=== PATIENT | female | born 1975 | race Two or more races ===

== ENCOUNTER → 2024-04-06 | Outpatient (CLI) | payer OTHER, SELFPAY ==
[2024-04-06 11:21] LABS: Basophils # (Auto) 0.1 Thou/mm3 (0.0-0.2); Basophils % (Auto) 2 % (0-2.5); Eosinophils # (Auto) 0.1 Thou/mm3 (0.0-0.5); Eosinophils % (Auto) 3 % (0-10); Hematocrit 31.3 % (36.0-46.0); Hemoglobin 10.1 g/dL (12.0-16.0); Immature Granulocytes % (Auto) 0 % (0-0); Immature Granulocytes Auto 0.01 Thou/mm3 (0.00-0.00); Lymphocytes # (Auto) 1.3 Thou/mm3 (1.0-4.8); Lymphocytes % (Auto) 37 % (10-50); Mean Corpuscular HGB Conc 32.3 g/dl (31.0-37.0); Mean Corpuscular Hemoglobin 33.1 pg (25.0-35.0); Mean Corpuscular Volume 103 fL (80-100); Monocytes # (Auto) 0.4 Thou/mm3 (0.0-0.8); Monocytes % (Auto) 11 % (0-12); Neutrophils # (Auto) 1.7 Thou/mm3 (1.8-7.7); Neutrophils % (Auto) 47 % (37-80); Nucleated Red Blood Cell % 0 /100 WBC (0); Platelet Count 325 Thou/mm3 (140-440); Red Blood Count 3.05 Miln/mm3 (4.00-5.20); White Blood Count 3.6 Thou/mm3 (3.6-11.0)
[2024-04-06 11:40] LABS: Alanine Aminotransferase 16 U/L (10-49); Albumin, Serum 4.5 gm/dL (3.5-5.0); Albumin/Globulin Ratio 1.9 (1.2-2.2); Alkaline Phosphatase 73 U/L (46-116); Anion Gap 9 (7-16); Aspartate Amino Transferase 23 U/L (0-34); BUN/Creatinine Ratio 17 Ratio (12-20); Bilirubin,Total 0.5 mg/dL (0.3-1.2); Blood Urea Nitrogen 10 mg/dL (9-23); Calcium 9.4 mg/dL (8.3-10.6); Calcium (Corrected) 9.4 mg/dL (8.5-10.1); Carbon Dioxide 25.3 mMol/L (20.0-31.0); Chloride 104 mMol/L (98-107); Cholesterol 221 mg/dL (132-200); Creatinine (Component) 0.6 mg/dL (0.6-1.3); Globulin 2.4 gm/dL (2.3-3.5); Glucose 85 mg/dL (74-106); HDL Cholesterol 111 mg/dL (40-60); LDL Cholesterol,Calculated 94 mg/dL (0-130); Osmolality,Calculated 273 (275-295); Potassium 4.4 mMol/L (3.4-5.1); Sodium 138 mMol/L (136-145); Thyroid Stimulating Hormone 1.47 uIU/mL (0.55-4.78); Total Protein 6.9 gm/dL (5.7-8.2); Triglycerides 79 mg/dL (30-150); Uric Acid 4.6 mg/dL (3.1-7.8); eGFR > 60 See Note
[2024-04-06 11:44] LABS: Collection Type, Urine Clean Catch
[2024-04-06 11:49] LABS: Ferritin 7 ng/mL (7.3-270.7)
[2024-04-06 11:52] LABS: Vitamin B12 418 pg/mL (211-911); Vitamin D 25 Hydroxy Total 12.1 ng/mL (7.3-40.2)
[2024-04-06 12:12] LABS: Bacteria,Urine Rare; Bilirubin,Urine Negative (Negative); Blood,Urine Negative (Negative); Clarity,Urine Clear (Clear/Hazy); Color,Urine Colorless (Lt Yel-Yel); Glucose, Urine Negative (Negative); Ketones,Urine Negative (Negative); Leukocyte Esterase,Urine Negative (Negative); Nitrite,Urine Negative (Negative); Protein,Urine Negative (Neg - Trace); RBC,Urine 2 /hpf (0-3); Specific Gravity,Urine 1.008 (1.001-1.035); Squamous Epithelial Cell,Urine 8 /hpf (0-5); Urobilinogen,Urine Negative mg/dL (0.0-1.0); WBC,Urine 1 /hpf (0-5)
[2024-04-09 13:59] LABS: Misc Send Out* See Sep Rpt
== END | disposition home or self-care (01) ==
PROVIDERS: PCP Internal Medicine; Referring Provider Internal Medicine; Visit Provider Internal Medicine
DX: Z00.00 Encounter for general adult medical examination without abnormal findings (principal)
CPT/HCPCS: 36415; 80053; 80061; 81001; 82306; 82607; 82728; 83036; 84443; 84550; 85025

== ENCOUNTER → 2024-05-30 | Outpatient (CLI) | payer OTHER, SELFPAY ==
[2024-05-30 10:53] LABS: Follicle Stimulating Hormone 10.99 mIU/mL (See Note)
[2024-05-30 10:54] LABS: Alanine Aminotransferase 20 U/L (10-49); Albumin, Serum 4.5 gm/dL (3.5-5.0); Albumin/Globulin Ratio 1.6 (1.2-2.2); Alkaline Phosphatase 69 U/L (46-116); Anion Gap 5 (7-16); Aspartate Amino Transferase 42 U/L (0-34); BUN/Creatinine Ratio 12 Ratio (12-20); Beta HCG,Quantitative < 1 mIU/mL (<5.0); Bilirubin,Total 0.4 mg/dL (0.3-1.2); Blood Urea Nitrogen 7 mg/dL (9-23); Calcium 9.1 mg/dL (8.3-10.6); Calcium (Corrected) 9.1 mg/dL (8.5-10.1); Carbon Dioxide 24.6 mMol/L (20.0-31.0); Chloride 104 mMol/L (98-107); Creatinine (Component) 0.6 mg/dL (0.6-1.3); Free T4 (Free Thyroxine) 0.98 ng/dL (0.89-1.76); Globulin 2.8 gm/dL (2.3-3.5); Glucose 89 mg/dL (74-106); Osmolality,Calculated 265 (275-295); Potassium 4.4 mMol/L (3.4-5.1); Sodium 134 mMol/L (136-145); Thyroid Stimulating Hormone 1.55 uIU/mL (0.55-4.78); Total Protein 7.3 gm/dL (5.7-8.2); eGFR > 60 See Note
[2024-05-30 11:05] LABS: Glucose Estimated Average 88 mg/dL (80-131); Hemoglobin A1C 4.7 % Hgb (4.8-6.0)
[2024-05-30 11:16] LABS: Basophils # (Auto) 0.1 Thou/mm3 (0.0-0.2); Basophils % (Auto) 1 % (0-2.5); Eosinophils # (Auto) 0.1 Thou/mm3 (0.0-0.5); Eosinophils % (Auto) 3 % (0-10); Hematocrit 33.5 % (36.0-46.0); Hemoglobin 10.5 g/dL (12.0-16.0); Immature Granulocytes % (Auto) 0 % (0-0); Immature Granulocytes Auto 0.01 Thou/mm3 (0.00-0.00); Lymphocytes # (Auto) 1.4 Thou/mm3 (1.0-4.8); Lymphocytes % (Auto) 35 % (10-50); Mean Corpuscular HGB Conc 31.3 g/dl (31.0-37.0); Mean Corpuscular Hemoglobin 31.2 pg (25.0-35.0); Mean Corpuscular Volume 99 fL (80-100); Monocytes # (Auto) 0.5 Thou/mm3 (0.0-0.8); Monocytes % (Auto) 12 % (0-12); Neutrophils # (Auto) 1.9 Thou/mm3 (1.8-7.7); Neutrophils % (Auto) 49 % (37-80); Nucleated Red Blood Cell % 0 /100 WBC (0); Platelet Count 425 Thou/mm3 (140-440); RDW Standard Deviation 54.4 fL (36.4-46.3); Red Blood Count 3.37 Miln/mm3 (4.00-5.20)
[2024-06-11 07:01] LABS: DHEA Sulfate* 75 mcg/dL (19-231); Estrogen, Total, Serum* 156 pg/mL
[2024-06-11 07:02] LABS: Albumin 4.4 g/dL (3.6-5.1); Luteinizing Hormone* 10.2 mIU/mL; Progesterone,LC/MS* <0.1 ng/mL; Prolactin* 6.1 ng/mL; SHBG 111 nmol/L (17-124); Testosterone, Bioavailable 1.4 ng/dL (0.5-8.5); Testosterone, Free 0.7 pg/mL (0.2-5.0); Testosterone,Total 17 ng/dL (2-45)
== END | disposition home or self-care (01) ==
LOC: SLAB 09:11
PROVIDERS: PCP Internal Medicine; Referring Provider Specialist; Visit Provider Specialist
DX: N93.9 Abnormal uterine and vaginal bleeding, unspecified (principal)
CPT/HCPCS: 36415; 80053; 82040; 82627; 82672; 83001; 83002; 83036; 84144; 84146; 84270; 84403; 84439; 84443; 84702; 85025

== ENCOUNTER → 2024-06-28 | Outpatient (CLI) | payer OTHER, SELFPAY ==
[2024-06-28 17:23] LABS: BVAG Candida Negative (Negative); Bacterial Vaginosis Markers Positive (Negative); Candida glabrata Negative (Negative); Candida krusei PCR Negative (Negative); Trichomonas Negative (Negative)
== END | disposition home or self-care (01) ==
LOC: SLDO 13:42
PROVIDERS: Referring Provider Specialist; Visit Provider Specialist
DX: B37.89 Other sites of candidiasis (principal); N76.0 Acute vaginitis; A59.01 Trichomonal vulvovaginitis
CPT/HCPCS: 81514

== ENCOUNTER 2024-08-14 08:50 | Day surgery (SDC) | payer OTHER, SELFPAY ==
--- NOTE | 2024-08-10 08:19 | ESHP_ITS ---
RE: LAURENT TRAN : 1975 DATE OF ADMISSION: 08/14/2024 HISTORY OF PRESENT ILLNESS: This is a 48-year-old 2, para 2 with abnormal uterine bleeding, cervical polyp who presents for removal of polyp and endometrial ablation. ALLERGIES: NO KNOWN DRUG ALLERGIES. MEDICATIONS: Citalopram 10 mg one p.o. daily. SOCIAL HISTORY: She is . She denies any alcohol, drug use, or smoking. PAST MEDICAL HISTORY: Depression. FAMILY HISTORY: Denies. PAST SURGICAL HISTORY: delivery in 1997. REVIEW OF SYSTEMS: She denies any chest pain, palpitations, cough, fever, shortness of breath, or lower extremity pain. PHYSICAL EXAMINATION: VITAL SIGNS: Blood pressure 132/74, heart rate 88, respirations 18, and temperature 98.6. HEENT: Oropharynx and sclerae are clear. LUNGS: Clear to auscultation bilaterally. HEART: Regular rate and rhythm. ABDOMEN: Old Pfannenstiel scar noted. EXTREMITIES: Nontender. SKIN: No gross rashes or lesions. NEUROLOGIC: No focal deficits. ASSESSMENT: 1. Abnormal uterine bleeding. 2. Cervical polyp. 3. Endocervical polyp. PLAN: Hysteroscopy, MyoSure removal of endometrial and endocervical polyps, fractional dilatation and curettage, and NovaSure endometrial ablation. Informed consent was obtained. The patient was made aware of the risks, complications, alternatives, and benefits of the proposed procedure and she agrees. She is aware of the risk of injury to bowel or bladder, uterus, adjacent organs, pulmonary embolism, deep vein thrombosis, pelvic infection, reoperation to repair injury to internal organs, anesthesia complications, the possibility that a laparotomy needs to be performed to repair organs or control bleeding and the possibility that the procedure is not able to be completed due to severe adhesions or technical difficulties. She verbalized understanding and agrees to proceed with the procedure with an understanding of the risks and complications. DT: 07:48:48 TT: 08:17:00 Ref: [id number] - TID: [id number]
[2024-08-10 09:35] VITALS: BMI 34.9
[2024-08-10 11:29] LABS: Basophils # (Auto) 0.1 Thou/mm3 (0.0-0.2); Basophils % (Auto) 1 % (0-2.5); Eosinophils # (Auto) 0.2 Thou/mm3 (0.0-0.5); Eosinophils % (Auto) 4 % (0-10); Hematocrit 35.1 % (36.0-46.0); Hemoglobin 11.4 g/dL (12.0-16.0); Immature Granulocytes % (Auto) 0 % (0-0); Immature Granulocytes Auto 0.01 Thou/mm3 (0.00-0.00); Lymphocytes # (Auto) 1.5 Thou/mm3 (1.0-4.8); Lymphocytes % (Auto) 32 % (10-50); Mean Corpuscular HGB Conc 32.5 g/dl (31.0-37.0); Mean Corpuscular Hemoglobin 31.8 pg (25.0-35.0); Mean Corpuscular Volume 98 fL (80-100); Monocytes # (Auto) 0.5 Thou/mm3 (0.0-0.8); Monocytes % (Auto) 10 % (0-12); Neutrophils # (Auto) 2.4 Thou/mm3 (1.8-7.7); Neutrophils % (Auto) 53 % (37-80); Nucleated Red Blood Cell % 0 /100 WBC (0); Platelet Count 280 Thou/mm3 (140-440); RDW Standard Deviation 50.4 fL (36.4-46.3); Red Blood Count 3.59 Miln/mm3 (4.00-5.20); White Blood Count 4.6 Thou/mm3 (3.6-11.0)
[2024-08-10 11:44] LABS: Alanine Aminotransferase 23 U/L (10-49); Albumin, Serum 4.4 gm/dL (3.5-5.0); Albumin/Globulin Ratio 1.6 (1.2-2.2); Alkaline Phosphatase 91 U/L (46-116); Anion Gap 9 (7-16); Aspartate Amino Transferase 34 U/L (0-34); BUN/Creatinine Ratio 14 Ratio (12-20); Beta HCG,Quantitative 1 mIU/mL (<5.0); Bilirubin,Total 0.6 mg/dL (0.3-1.2); Blood Urea Nitrogen 11 mg/dL (9-23); Calcium 8.9 mg/dL (8.3-10.6); Calcium (Corrected) 8.9 mg/dL (8.5-10.1); Carbon Dioxide 24.9 mMol/L (20.0-31.0); Chloride 107 mMol/L (98-107); Creatinine (Component) 0.8 mg/dL (0.6-1.3); Estimated Creatinine Clearance 95.6 mL/min (>60); Globulin 2.8 gm/dL (2.3-3.5); Glucose 93 mg/dL (74-106); Osmolality,Calculated 280 (275-295); Potassium 4.6 mMol/L (3.4-5.1); Sodium 141 mMol/L (136-145); Total Protein 7.2 gm/dL (5.7-8.2); eGFR > 60 See Note
[2024-08-10 15:02] LABS: INR 0.9 (0.9-1.3); Partial Thromboplastin Time 27.6 Seconds (22.0-36.0); Prothrombin Time 10.3 Seconds (9.0-12.2)
[2024-08-14] VITALS (10 sets, daily range): BP systolic 102–135; BP diastolic 60–88; PULSE 62–75; RESP 14–20; TEMP 36.3–36.6; O2SAT 97–100; BMI 33.7
--- NOTE | 2024-08-14 12:14 | XR_ITS ---
Examination: AP chest single view Technique one AP portable upright chest single view Date and time: August 14, 2024 1238 hours Comparison April 07, 2023 INDICATIONS: Chest pain today. FINDINGS: No significant cardiac enlargement Mild opacity perihilar and both bases suspicious for early pneumonia Moderate osteopenia IMPRESSION: Suspicious for early bilateral pneumonia
[2024-08-14] MEDS: ALBUTEROL/IPRATROPIUM (Duoneb) RT SOL 3 ML NEBU INH (12:15)
--- NOTE | 2024-08-14 12:16 | SUR.PHASEI ---
Pt. arrived to recovery via gurney, eyes open, responds to verbal commands, VSS, lung sounds clear, diminished at bases, pt. receiving 10 liters 02, Abdiel PROJECT SAFETY MANAGER ordered albuterol breathing treatment d/t difficult intubation, fish-pad in place, saturated in bright red blood and medium size clot noted, changed fish-pad and will continue to monitor bleeding, vaginal packing in place, no c/o pain or nausea at this time. CXR ordered to r/o aspiration. Report received from Erika OLIVA and Grace lindsay CRNA.
--- NOTE | 2024-08-14 13:02 | SUR.PHASEII ---
Gave report on pt. s/p surgery to Grazyna OLIVA.
[2024-08-14] MEDS: fentaNYL CIT INJ 50 mCg/ML AMP 2ML IVP (13:04)
--- NOTE | 2024-08-14 13:45 | SUR.PHASEII ---
1345: Pt. AAOx4, vitals stable, breathing unlabored, no complaint of pain or nausea, peripad in place with minimal amount of blood, no blood clots noted or progressive amount of bleeding from the time recieved report from Christa OLIVA. Pt. tolerated sips of water well, pt. ambulated to wheelchair with steady gait and no assist, no complications. Gave discharge instructions to the pt. and her ride, both verbalized understanding and had no further questions. Pt. left with all personal belongings.
--- NOTE | 2024-08-15 07:25 | ESOP_ITS ---
RE: LAURENT TRAN : 1975 DATE OF OPERATION: 08/14/2024 PREOPERATIVE DIAGNOSES: Abnormal uterine bleeding. Endometrial polyp. Endocervical polyp. POSTOPERATIVE DIAGNOSES: Abnormal uterine bleeding. Endometrial polyps. Endocervical myoma. PROCEDURE PERFORMED: Hysteroscopy. MyoSure removal of endometrial polyp and endocervical myoma. Fractional dilatation and curettage. Failed NovaSure endometrial ablation. SURGEON: Tyron Vergara DO HEALTH CARE COACH: None. ANESTHESIA: General. ANESTHESIOLOGIST: Abdiel Angel CRNA ESTIMATED BLOOD LOSS: 150 mL COMPLICATIONS: None. COUNTS: Correct. PATHOLOGY: 1. Endocervical myoma. 2. Endometrial polyps. 3. Endocervical curettings. 4. Endometrial curettings. FINDINGS: Uterus sounds to 9.5 cm anteverted. Cervical length is 3.0 cm. Uterine cavity length is 6.5 cm. Uterine cavity width was 3.5 cm. Endocervical myoma 2.5 x 2.5 cm. Endometrial polyps were 3 x 3 mm each x2. DESCRIPTION OF PROCEDURE: After appropriate informed consent was obtained, the patient was made aware of the risks, complications, alternatives, and benefits of the proposed procedure. She was taken to the operating room where she underwent induction of general anesthesia. She was placed in the dorsal lithotomy position. She was prepped and draped in the usual sterile fashion. A timeout was performed. A bivalve speculum was placed in the vagina. A single-tooth tenaculum was used to grasp the anterior lip of the cervix. The cervix was dilated to accommodate the 6.0 cm Omni hysteroscope. The hysteroscope was then utilized to visualize the endocervix and uterine cavity. The large size of the myoma required the MyoSure XL to remove. The MyoSure XL was used to remove the endocervical myoma piecemeal. Attention was then turned to the uterine cavity where the endometrial polyps were removed with the MyoSure XL and specimen sent to Pathology. The endocervix was curetted and specimen sent to Pathology. The uterine cavity was curetted and specimen sent to Pathology. The NovaSure catheter was plugged into the controller and went through its purge cycle. The NovaSure catheter was appropriately seated in the uterine cavity and the carbon dioxide cavity integrity assessment tests were performed and the cervix was too patulous after removing the endocervical myoma to prevent the leaking of the CO2 from the endocervix. Several measures were used to circumvent this, which included a Vaseline gauze wrapping around the tip of the seal as well as grasping the cervix with forceps and trying to seal the os; however, these measures failed to prevent the CO2 from leaking from the cervix and therefore the NovaSure ablation was unable to be performed. There was some bleeding noted from the endocervix at the end of the procedure that did not resolve with cautery, so the cervical branch of the uterine artery was ligated bilaterally using #0 Vicryl. Hemostasis was achieved. There was inch-gauze packing that was placed into the endocervix. The patient was reversed from general anesthesia in the supine position and transferred to the recovery room in stable condition. She tolerated the procedure well. Counts were correct. DT: 12:06:47 TT: 20:19:00 Ref: [id number] - TID: [id number] MTDD
== END 2024-08-14 13:45 | disposition home or self-care (01) ==
PROVIDERS: PCP Internal Medicine; Referring Provider Specialist; Visit Provider Specialist
PROC: 0U5B8ZZ Destruction of Endometrium, Via Natural or Artificial Opening Endoscopic (ICD-10-PCS; CPT 58563; principal; 2024-08-14 11:00)
DX: N84.0 Polyp of corpus uteri (principal); F32.A Depression, unspecified; D26.0 Other benign neoplasm of cervix uteri
CPT/HCPCS: 58558; 36415; 71045; 80053; 84702; 85025; 85610; 85730; 86850; 86900; 86901; A4217; A4649; A9270; J0330; J0690; J1100; J1885; J2250; J2405; J2704; J3010; J3490; J1596

== ENCOUNTER 2024-08-15 10:20 | Emergency (ER) | payer OTHER, SELFPAY ==
[2024-08-15 10:41] VITALS: BP 128/85; PULSE 85; RESP 18; TEMP 37.1; O2SAT 98; BMI 33.8
--- NOTE | 2024-08-15 10:47 | EDNOTE_ITS ---
<Statement entered by Ciara Collins MD - 08/15/24 17:03> As co-signing physician, I was present and available for consult prn. I concur with the plan and care as documented by the midlevel provider. ED SOB =RME/HPI General Chief Complaint: Shortness of Breath/Dyspnea Stated Complaint: DIFFICULTY BREATHING POST SURGERY INTUBATION Time Seen by Provider: 08/15/24 10:32 Source: patient Arrival date/time: 08/15/24 10:20 48-year-old female with no known medical history presents to the emergency room with a chief complaint of an abnormal chest x-ray. Patient states she had some fibroid removal and was intubated yesterday. After the intubation a chest x-ray was completed and this morning her FASHION PATTERNMAKER called her as the chest x-ray read possible aspiration pneumonia. Mode of arrival: ambulatory Limitations: no limitations Related Data Home Medications ?Medication ?Instructions ?Recorded ?Confirmed escitalopram oxalate 10 mg tablet 10 mg PO QDAY 08/10/24 (Lexapro) ferrous sulfate 325 mg (65 mg 325 mg PO DAILY 08/10/24 08/10/24 iron) tablet Previous Rx's ?Medication ?Instructions ?Recorded amoxicillin 875 mg-potassium 1 tab PO BID 7 days #14 t abs 08/15/24 clavulanate 125 mg tablet Allergies Allergy/AdvReac Type Severity Reaction Status Date / Time No Known Allergies Allergy Verified 08/15/24 10:23 Review of Systems Review of Systems Systems Reviewed: All systems reviewed, normal except as documented Constitutional Constitutional: Reports system reviewed and no additional complaints, except as documented, Denies fatigue, Denies fever(s), Denies headache(s) and Denies weakness Eyes Eyes: Reports system reviewed and no additional complaints, except as documented, Denies blurry vision and Denies change in vision ENT Ears, Nose, Mouth, and Throat: Reports system reviewed and no additional complaints, except as documented, Denies otalgia, Denies headache(s), Denies nasal congestion, Denies throat swelling and Denies vertigo Cardiovascular Cardiovascular: Reports system reviewed and no additional complaints, except as documented, Denies chest pain, Denies dyspnea and Denies dyspnea on exertion Respiratory Respiratory: Reports system reviewed and no additional complaints, except as documented, Denies chest congestion, Denies cough, Denies dyspnea, Denies dyspnea on exertion, Denies pain on inspiration and Denies wheezing Gastrointestinal Gastrointestinal: Reports system reviewed and no additional complaints, except as documented, Denies abdominal pain, Denies cramping, Denies nausea and Denies vomiting Genitourinary Genitourinary: Reports system reviewed and no additional complaints, except as documented Musculoskeletal Musculoskeletal: Reports system reviewed and no additional complaints, except as documented and Denies back pain Integumentary/Breasts Skin/Breast: Reports system reviewed and no additional complaints, except as documented and Denies wounds Neurologic Neurologic: Reports system reviewed and no additional complaints, except as documented, Denies confusion, Denies headache(s), Denies lack of coordination, Denies vertigo and Denies weakness Psychiatric Psychiatric: Reports system reviewed and no additional complaints, except as documented, Denies anxiety, Denies confusion, Denies depression, Denies paranoia, Denies suicidal ideation and Denies tactile hallucinations Endocrine Endocrine: Reports system reviewed and no additional complaints, except as documented and Denies fatigue Hematologic/Lymphatic Hematologic/Lymphatic: Reports system reviewed and no additional complaints, except as documented and Denies lymphadenopathy Allergic/Immunologic Allergic/Immunologic: Reports system reviewed and no additional complaints, except as documented, Denies throat swelling, Denies urticaria and Denies wheezing ED Exam General Limitations: Present no limitations General appearance: Present alert and in no apparent distress Head Head exam: Present atraumatic Eye Eye exam: Present normal appearance, PERRL and EOMI ENT ENT exam: Present normal exam, normal oropharynx and mucous membranes moist Neck Neck exam: Present normal inspection, full ROM and trachea midline Chest Chest inspection: Present normal inspection and symmetric chest wall rise Respiratory Respiratory exam: Present normal lung sounds bilaterally; Absent respiratory distress, wheezes, stridor, accessory muscle use or prolonged expiratory phase Cardiovascular Cardiovascular exam: Present regular rate, normal rhythm and normal heart sounds Abdominal Exam Abdominal exam: Present soft and normal bowel sounds Extremities Exam Extremities exam: Present normal inspection and full ROM Back Exam Back exam: Present normal inspection and full ROM Neurological Exam Neurological exam: Present alert, oriented X3 and CN II-XII intact Psychiatric Psychiatric exam: Present normal affect and normal mood Skin Skin exam: Present warm, dry, intact and normal color Course Quality Measures none Orders Category Date Time Status cefTRIAXone [Rocephin] 1,000 mg Med 08/15/24 10:47 Ordered Lidocaine 1% 20 ml [Xylocaine 1% 20 ML] 2.1 ml IM X1 Vital Signs Vital signs: Vital Signs Temperature 98.7 F 08/15/24 10:41 Pulse Rate 85 08/15/24 10:41 Respiratory Rate 18 08/15/24 10:41 Blood Pressure 128/85 H 08/15/24 10:41 Pulse Oximetry (%) 98 08/15/24 10:41 Oxygen Delivery Method Room Air 08/15/24 10:41 O2 saturation 98% within normal limits Shortness of Breath / Dyspnea MDM Narrative MDM Narrative:: 48-year-old female with no known medical history presents to the emergency room with a chief complaint of an abnormal chest x-ray. Patient states she had some fibroid removal and was intubated yesterday. After the intubation a chest x-ray was completed and this morning her FASHION PATTERNMAKER called her as the chest x-ray read possible aspiration pneumonia. Patient is hemodynamically stable. There is no fever no tachycardia no tachypnea patient's O2 saturation is 98% on room air Physical examination shows clear bilateral lung sounds. The patient states she is having some mild difficulty breathing but there is some soreness to her throat area. Patient states her doctor told her they needed multiple attempts for intubation. The patient showed me the x-ray which showed suspicion for aspiration pneumonia. Patient states that she would not like repeat x-rays or any blood work as she states she does not want an expensive emergency bill. I spoke to the patient and told her that I can treat her for her pneumonia prophylactically. But I gave her strict return precautions to return to the emergency room for any evidence of worsening signs or symptoms Patient was discharged and educated to follow-up with primary care provider in the next 24 to 48 hours and return to the emergency room for any evidence of worsening signs or symptoms Patient data External records reviewed:: [facility] previous records Clinical information provided by:: patient Social determinants that could affect healthcare access:: none Patient has the following chronic illnesses:: No chronic illness How is presenting disease/condition affected by chronic disease/condition?: no chronic disease Evaluation data The following diagnostics were reviewed and interpreted by me:: lab results and radiology exam(s) Lab and/or radiology exams considered but not ordered:: Labs and radiology exams considered in order Interpretation Summary: N/A Medications / Prescriptions Medications or Prescriptions considered but not ordered:: Rx given Medication administrations:: Rx given Consultations Consultation(s) initiated? (list below): No Diagnosis Shortness of Breath Differential Diagnosis: community acquired pneumonia and asthma with exacerbation Most likely diagnosis given after review of the tests above:: Community-acquired pneumonia Admission Indicated Admission indicated?: not indicated Admission Request Was there a request for admission?: No Disposition Plan Disposition Plan: Discharge Discharge Attestation Discharge Attestation: The patient and all family members were given an opportunity to ask questions and understood the discharge instructions. Discharge instructions specifically effects, indications for sooner follow up or return to the emergency department, and the expected course of current diagnosis. Patient condition: Stable Discharge Plan Plan Patient Disposition: HOME (Self Care) Prescriptions/Referrals Prescriptions/Med Rec: New amoxicillin-pot clavulanate 875-125 mg tablet 1 tab PO BID 7 Days Qty: 14 0RF No Action escitalopram oxalate [Lexapro] 10 mg tablet 10 mg PO QDAY ferrous sulfate 325 mg (65 mg iron) tablet 325 mg PO DAILY Patient Comments: Take 1 tablet by mouth twice a day Problem List Clinical Impression: Community acquired pneumonia Patient/Caregiver Discharge Instructions Education Materials: ED Pneumonia (Adult) Additional Instructions: Please follow-up with your primary care provider in the next 24 to 48 hours Antibiotics are sent to your pharmacy please pick them up and take them as indicated For any evidence of worsening signs or symptoms return emergency room immediately Print Language: Greenlandic Stand Alone Forms: Cindy Award Info., Work/School Release, Patient Portal Info Letter PA/ANTHONY Supervising Physician PA/ANTHONY Supervising Physician: Dr. COLLINS
[2024-08-15] MEDS: cefTRIAXone 1,000 MG, LIDOCAINE 1% 20 ML 2.1 ML IM (11:04)
== END 2024-08-15 12:15 | disposition home or self-care (01) ==
PROVIDERS: Emergency Provider Emergency Medicine; PCP Internal Medicine
DX: J18.9 Pneumonia, unspecified organism (principal)
CPT/HCPCS: 96372; 99283; J0696; J3490

== ENCOUNTER → 2024-09-13 | Outpatient (CLI) | payer OTHER, SELFPAY ==
--- NOTE | 2024-09-13 14:30 | XR_ITS ---
Examination: Screening digital mammography, bilateral Computer aided detection 3-D breast Tomosynthesis, bilateral Date and time of exam: hours Compared to mammograms dating to January 31, 2019 Indication: Screening Technique: Nonmagnified MLO, CC views of the breasts to been obtained, reconstructed from 3-D Tomosynthesis images. R2 computer aided detection program utilized for evaluation of suspicious masses and/or abnormal calcifications. 3-D Tomosynthesis images obtained. Findings: Scattered areas of fibroglandular density. Intramammary lymph node upper outer right breast. Benign calcifications. No interval suspicious masses Impression: BI-RADS category II: Benign Findings. Recommend 1 year follow-up mammogram.
== END | disposition home or self-care (01) ==
LOC: CDIM 13:54
PROVIDERS: Referring Provider Internal Medicine; Visit Provider Internal Medicine
DX: Z12.31 Encounter for screening mammogram for malignant neoplasm of breast (principal); R92.323 Mammographic fibroglandular density, bilateral breasts; R92.1 Mammographic calcification found on diagnostic imaging of breast
CPT/HCPCS: 77063; 77067

== ENCOUNTER → 2024-11-27 | Outpatient (CLI) | payer OTHER, SELFPAY ==
--- NOTE | 2024-11-27 10:03 | XR_ITS ---
EXAMINATION: Ankle, left 3 views . Technique: Ankle AP, oblique, lateral 3 views Date and time of exam: November 27, 2024, 1010 hours INDICATIONS: Patient fell 3 days ago with injury to the ankle, ankle pain. FINDINGS: Lateral malleolar soft tissue swelling. No fracture or dislocation. IMPRESSION: No fracture or dislocation.
== END | disposition home or self-care (01) ==
LOC: SDIM 09:03
PROVIDERS: PCP Internal Medicine; Referring Provider Internal Medicine; Visit Provider Internal Medicine
DX: S99.912A Unspecified injury of left ankle, initial encounter (principal); W19.XXXA Unspecified fall, initial encounter
CPT/HCPCS: 73610